=== PATIENT | male | born 1970 | race Caucasian/White ===

== ENCOUNTER 2024-02-13 17:39 | Inpatient (IN) | payer SELFPAY ==
[~2024-02-13] VITALS: Ht 172.7 cm; Wt 100.7 kg
[2024-02-13] MEDS: CHLORDIAZEPOXIDE 25MG CAPSULE PO ONE (19:30)
[2024-02-13 21:55] LABS: BASOPHILS % 0.2 % (0.0-2.0); EOSINOPHILS % 0.1 % (0.0-5.0); HEMATOCRIT. 44.1 % (42.0-52.0); HEMOGLOBIN. 15.6 g/dL (14.0-18.0); LYMPHOCYTES % 8.3 % (20.0-50.0); MEAN CORPUSCULAR HEMOGLOBIN 32.1 pg (28.0-32.0); MEAN CORPUSCULAR HGB CONC 35.3 g/dL (31.0-37.0); MEAN CORPUSCULAR VOLUME 91.2 fL (80.0-94.0); MONOCYTES % 6.9 % (2.0-8.0); NEUTROPHILS % 84.5 % (40.0-76.0); PLATELET 54 x1000/uL (130-400); RED BLOOD CELL COUNT 4.84 mill/uL (4.7-6.1); RED CELL DISTRIBUTION WIDTH 15.6 % (11.6-14.6); WHITE BLOOD COUNT 5.3 x1000/uL (4.5-11.0)
[2024-02-13] MEDS: DIAZEPAM 5 MG/ML 2ML CPJ IV ONE ×2 (21:59→23:45)
[2024-02-13 22:14] LABS: ALANINE AMINOTRANSFERASE 93 IU/L (10-49); ALBUMIN 4.7 g/dL (3.2-4.8); ASPARTATE AMINOTRANSFERASE 234 IU/L (<34); BILIRUBIN TOTAL 3.6 mg/dL (0.1-1.0); CALCIUM 9.1 mg/dL (8.7-10.4); CARBON DIOXIDE 29 mEq/L (21-32); CHLORIDE 93 mEq/L (98-107); CREATININE 0.9 mg/dL (0.6-1.3); GLUCOSE 132 mg/dL (70-105); PROTEIN TOTAL 8.3 g/dL (6.0-8.3); SODIUM 132 mEq/L (136-145)
[2024-02-13 22:20] LABS: POTASSIUM 2.7 mEq/L (3.5-5.1); UREA NITROGEN BLOOD < 5 mg/dL (9-23)
[2024-02-14] VITALS (7 sets, daily range): BP systolic 103–151; BP diastolic 58–98; PULSE 68–99; RESP 18–20; TEMP 97.6–98.7
[2024-02-14] MEDS ORDERED: LORAZEPAM 2MG/ML INJ IV PRN (03:30)
[2024-02-14] MEDS: KCL 20MEQ/100ML PREMIX 100 ML IV SCH (04:57)
[2024-02-14] MEDS: POTASSIUM CHLORIDE 20MEQ TABLET SR PO NR (04:57)
[2024-02-14] MEDS: CHLORDIAZEPOXIDE 25MG CAPSULE PO SCH (05:05)
[2024-02-14 08:03] LABS: BASOPHILS % 0.6 % (0.0-2.0); EOSINOPHILS % 0.5 % (0.0-5.0); HEMATOCRIT. 41.6 % (42.0-52.0); HEMOGLOBIN. 14.6 g/dL (14.0-18.0); LYMPHOCYTES % 16.5 % (20.0-50.0); MEAN CORPUSCULAR HEMOGLOBIN 32.6 pg (28.0-32.0); MEAN CORPUSCULAR HGB CONC 35.1 g/dL (31.0-37.0); MEAN CORPUSCULAR VOLUME 92.8 fL (80.0-94.0); MEAN PLATELET VOLUME 9.6 fl (7.4-10.4); MONOCYTES % 11.6 % (2.0-8.0); NEUTROPHILS % 70.8 % (40.0-76.0); PLATELET 53 x1000/uL (130-400); RED BLOOD CELL COUNT 4.48 mill/uL (4.7-6.1); RED CELL DISTRIBUTION WIDTH 15.1 % (11.6-14.6); WHITE BLOOD COUNT 3.8 x1000/uL (4.5-11.0)
[2024-02-14 08:30] LABS: ALANINE AMINOTRANSFERASE 84 IU/L (10-49); ASPARTATE AMINOTRANSFERASE 221 IU/L (<34); CALCIUM 8.6 mg/dL (8.7-10.4); CARBON DIOXIDE 30 mEq/L (21-32); CHLORIDE 93 mEq/L (98-107); CREATININE 0.9 mg/dL (0.6-1.3); GLUCOSE 134 mg/dL (70-105); SODIUM 132 mEq/L (136-145); UREA NITROGEN BLOOD 5 mg/dL (9-23)
[2024-02-14] MEDS: PANTOPRAZOLE 40MG DR TABLET PO SCH (08:35)
[2024-02-14] MEDS: MULTIVITAMINS,THER W-MINERALS TABLET PO SCH (08:35)
[2024-02-14] MEDS: FOLIC ACID 1MG TABLET PO SCH (08:35)
[2024-02-14] MEDS: THIAMINE HCL 100MG TABLET PO SCH (08:37)
[2024-02-14 09:05] LABS: POTASSIUM 2.7 mEq/L (3.5-5.1)
[2024-02-14 12:27] LABS: HEPATITIS B SURFACE ANTIGEN NEGATIVE (Negative); HEPATITIS C AB NON REACTIVE (Neg) (Negative)
[2024-02-14] MEDS: POTASSIUM CHLORIDE 20MEQ TABLET SR PO SCH (21:00)
[2024-02-15] VITALS: BP 130/67; PULSE 88; RESP 18; TEMP 97.7
[2024-02-15 04:00] VITALS: BP 132/88; PULSE 88; RESP 20; TEMP 98.1
[2024-02-15 06:28] LABS: CALCIUM 8.8 mg/dL (8.7-10.4); CARBON DIOXIDE 29 mEq/L (21-32); CHLORIDE 98 mEq/L (98-107); GLUCOSE 111 mg/dL (70-105); PHOSPHORUS 2.8 mg/dL (2.5-4.9); POTASSIUM 2.9 mEq/L (3.5-5.1); SODIUM 135 mEq/L (136-145); UREA NITROGEN BLOOD 9 mg/dL (9-23)
[2024-02-15 08:00] VITALS: BP 135/82; PULSE 71; RESP 20; TEMP 98.1
[2024-02-15 11:21] VITALS: BP 135/81; PULSE 74; RESP 18; TEMP 98
[2024-02-15 14:59] VITALS: BP 120/82; PULSE 76; TEMP 98; O2SAT 100
== END 2024-02-15 15:20 | disposition home or self-care (01) | DRG 58 ==
LOC: ER 17:39 → EDBD 17:39 → EDBEDREQ 23:01 → EDBEDREQTM 23:01 → 7WST 02-14 00:18
PROVIDERS: ADMIT Internal Medicine; ATTEND Internal Medicine
DX: R25.1 Tremor, unspecified (principal); E87.6 Hypokalemia; F10.139 Alcohol abuse with withdrawal, unspecified
CPT/HCPCS: 36415; 80048; 80053; 83735; 84100; 84450; 84460; 85025; 86705; 87340; 93005; 99291; J3480